=== PATIENT | female | born 1990 | race Two or more races ===

== ENCOUNTER 2016-12-23 19:16 | Observation (INO) | payer MEDICAID ==
[~2016-12-23] VITALS: Ht 162.6 cm; Wt 90.7 kg
[2016-12-23 19:56] LABS: Basophils # (auto) 0 uL; Eosinophils # (auto) 0.1 uL; Eosinophils % (auto) 0.5 % (0.0-7.0); Hematocrit 47.7 % (36.0-46.0); Hemoglobin 16.4 g/dL (12.2-16.2); Lymphocytes # (auto) 0.8 uL; Mean Corpuscular Hemoglobin 30.9 pg (28.0-32.0); Mean Corpuscular Hgb Conc. 34.3 g/dL (32.0-36.0); Mean Corpuscular Volume 89.9 fL (80.0-100.0); Mean Platelet Volume 9.8 fL (7.4-10.4); Monocytes # (auto) 0.5 uL; Monocytes % (auto) 4.1 % (0.0-12.0); Neutrophils # (auto) 10.2 uL; Neutrophils % (auto) 88.4 % (37.0-80.0); Platelet Count (auto) 280 10^3/uL (140-450); Red Cell Distribution Width 12.7 % (11.6-16.0); White Blood Cell 11.5 10^3/uL (4.4-10.8)
[2016-12-23] MEDS ORDERED: SODIUM CHLORIDE 0.9% 1,000 ML IVB ONE (20:02)
[2016-12-23] MEDS ORDERED: ONDANSETRON HCL 4 MG/2 ML VIAL IV ONE (20:15)
[2016-12-23 20:20] LABS: Urine Bilirubin Negative (Negative); Urine Blood TRACE /uL (Negative); Urine Color Yellow (Yellow); Urine Glucose Normal (Normal); Urine Ketone Negative (Negative); Urine Mucus FEW (None Seen); Urine Nitrite Negative (Negative); Urine RBC 2 /hpf (0 - 4); Urine Squamous Epithelial Cell MOD /hpf (<5); Urine Urobilinogen Normal (Negative); Urine pH 5.5 (5.0-8.0)
[2016-12-23 20:25] LABS: BUN/Creatinine Ratio 13.1; Calcium 8.9 mg/dL (8.5-10.1); Potassium 3.6 mmol/L (3.5-5.1)
[2016-12-23 20:33] LABS: Bilirubin, Total 1.3 mg/dL (0.2-1.0); Total Protein 8.3 g/dL (6.4-8.2)
[2016-12-23] MEDS ORDERED: cefTRIAXone 1GM/50ML D5W 50 ML IV ONE (21:15)
[2016-12-23 21:48] VITALS: BP 119/69
== END 2016-12-23 22:07 | disposition home or self-care (01) | DRG 249 ==
LOC: ER 19:33 → OVERFLOW 20:02 → ER 22:07
PROVIDERS: ADMIT Family Medicine; ATTEND Family Medicine
DX: K52.9 Noninfective gastroenteritis and colitis, unspecified (principal); N39.0 Urinary tract infection, site not specified; F17.210 Nicotine dependence, cigarettes, uncomplicated; Z82.49 Family history of ischemic heart disease and other diseases of the circulatory system; Z83.3 Family history of diabetes mellitus
CPT/HCPCS: 36415; 80053; 81001; 84702; 85025; 96361; 96365; 96375; 99285; G0378; J0696; J2405

== ENCOUNTER 2017-08-19 17:22 | Emergency (ER) | payer MEDICAID | END 2017-08-19 18:33 | disposition left against medical advice (07) | LOC: ER 17:27 | DX: R11.10 Vomiting, unspecified (principal); Z53.21 Procedure and treatment not carried out due to patient leaving prior to being seen by health care provider ==

== ENCOUNTER 2020-03-19 11:42 | Emergency (ER) | payer MEDICAID ==
[~2020-03-19] VITALS: Ht 160 cm; Wt 90.7 kg
[2020-03-19 12:39] LABS: Urine Bacteria FEW /hpf (None Seen); Urine Blood Negative /uL (Negative); Urine Mucus FEW (None Seen); Urine Specific Gravity 1.021 (1.001-1.035); Urine WBC 4 /hpf (0 - 5)
[2020-03-19 15:22] VITALS: BP 155/85
== END 2020-03-19 15:24 | disposition home or self-care (01) ==
LOC: ER 11:42
DX: N39.0 Urinary tract infection, site not specified (principal); Z32.02 Encounter for pregnancy test, result negative
CPT/HCPCS: 81001; 81025

== ENCOUNTER 2020-06-17 06:31 | Emergency (ER) | payer MEDICAID ==
[~2020-06-17] VITALS: Ht 172.7 cm; Wt 99.8 kg
[2020-06-17 07:29] VITALS: BP 158/97
[2020-06-17 07:59] LABS: Urine Bacteria FEW /hpf (None Seen); Urine Blood 2+ /uL (Negative); Urine Budding Yeast OCCASIONAL /hpf (None Seen); Urine WBC 3 /hpf (0 - 5)
[2020-06-17 09:26] LABS: Basophils # (auto) 0.2 10 ^3/uL (0-0.2); Basophils % (auto) 1.1 % (0.0-2.0); Eosinophils # (auto) 0.3 10 ^3/uL (0-0.8); Eosinophils % (auto) 2.1 % (0.0-7.0); Hematocrit 46.5 % (36.0-46.0); Hemoglobin 16.3 g/dL (12.2-16.2); Lymphocytes # (auto) 2.6 10 ^3/uL (0.4-5.4); Lymphocytes % (auto) 17.7 % (10.0-50.0); Mean Corpuscular Hemoglobin 31.7 pg (28.0-32.0); Mean Corpuscular Hgb Conc. 35.1 g/dL (32.0-36.0); Mean Corpuscular Volume 90.1 fL (80.0-100.0); Monocytes # (auto) 1.2 10 ^3/uL (0-1.3); Monocytes % (auto) 8.4 % (0.0-12.0); Neutrophils # (auto) 10.5 10 ^3/uL (1.6-8.6); Neutrophils % (auto) 70.7 % (37.0-80.0); Nucleated Red Blood Cells % 0.1 %; Platelet Count (auto) 242 10^3/uL (140-450); Red Blood Cells 5.16 10^6/uL (4.0-5.20); Red Cell Distribution Width 13.2 % (11.8-14.3); White Blood Cell 14.8 10^3/uL (4.4-10.8)
[2020-06-17 09:27] LABS: Albumin 3.8 g/dL (3.4-5.0); Calcium 9.3 mg/dL (8.5-10.1)
[2020-06-17 09:32] LABS: BUN/Creatinine Ratio 12.9; Total Protein 7.8 g/dL (6.4-8.2)
[2020-06-17 09:34] LABS: Potassium 2.6 mmol/L (3.5-5.1)
== END 2020-06-17 09:37 | disposition left against medical advice (07) ==
LOC: ER 06:31
DX: E11.65 Type 2 diabetes mellitus with hyperglycemia (principal); Z32.02 Encounter for pregnancy test, result negative
CPT/HCPCS: 36415; 80053; 81001; 81025; 82962; 83036; 85025

== ENCOUNTER 2022-03-29 06:49 | Emergency (ER) | payer MEDICAID ==
[2022-03-29 07:04] VITALS: BP 131/78
[2022-03-29] MEDS ORDERED: ACETAMINOPHEN 500 MG TAB PO ONE (08:00)
[2022-03-29] MEDS ORDERED: cefTRIAXone SOD 1,000 MG VL IM ONE (08:00)
[2022-03-29] MEDS ORDERED: IBUP800T27 PO (08:03)
[2022-03-29] MEDS ORDERED: SULF400T11 PO (08:03)
== END 2022-03-29 08:15 | disposition home or self-care (01) ==
LOC: ER 06:49
DX: S00.86XA Insect bite (nonvenomous) of other part of head, initial encounter (principal); L02.01 Cutaneous abscess of face; L08.9 Local infection of the skin and subcutaneous tissue, unspecified; J45.909 Unspecified asthma, uncomplicated; F17.210 Nicotine dependence, cigarettes, uncomplicated; F15.10 Other stimulant abuse, uncomplicated; W57.XXXA Bitten or stung by nonvenomous insect and other nonvenomous arthropods, initial encounter; Y93.89 Activity, other specified; Y92.89 Other specified places as the place of occurrence of the external cause; Y99.8 Other external cause status
CPT/HCPCS: 10060; 87077; 87186; 87205; 96372; 99283; J0696

== ENCOUNTER 2022-03-30 22:01 | Emergency (ER) | payer MEDICAID ==
[~2022-03-30 22:01] MED LIST: IBUP800T27 PO; SULF400T11 PO
[2022-03-30 22:28] VITALS: BP 133/91
== END 2022-03-31 02:09 | disposition home or self-care (01) ==
LOC: ER 22:01
DX: F17.210 Nicotine dependence, cigarettes, uncomplicated (principal); F12.10 Cannabis abuse, uncomplicated; F15.10 Other stimulant abuse, uncomplicated; J45.909 Unspecified asthma, uncomplicated; Z48.01 Encounter for change or removal of surgical wound dressing